=== PATIENT | female | born 1955 | race Caucasian/White ===

== ENCOUNTER 2018-12-23 16:43 | Emergency (ER) | payer OTHER ==
[~2018-12-23] VITALS: Ht 172.7 cm; Wt 90.7 kg
--- NOTE | 2018-12-23 16:43 | NUR ---
Patient BIBA BLS, transferred to bed 9. RN evaluating patient at bedside.
[2018-12-23 16:44] VITALS: BP 170/64
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
--- NOTE | 2018-12-23 17:12 | NUR ---
PT BIB [facility] TO ER BED 9
[2018-12-23] MEDS ORDERED: PROPOFOL 200 MG/20 ML VIAL IV ONE (17:15)
--- NOTE | 2018-12-23 17:42 | NUR ---
Dr. Rdz, RN and RT at bedside for reduction of right ankle fracture with moderate sedation.
--- NOTE | 2018-12-23 17:43 | NUR ---
PT ON ETCO2 AT 3LNC PT GIVEN SEDATION DR. PARIS AT BEDSIDE HR 94 RR 28 O2 SAT 98% ETCO2 37 ENDED AT 1749 O2 SAT 99% HR 89 RR 16 ETCO2 WAS 36 PT WAS TALKING AND SEMI AWAKE WITH FAMILY AT BEDSIDE
--- NOTE | 2018-12-23 17:44 | NUR ---
50MG/5ML PROPOFOL IVP TO BEGIN REDUCTION
--- NOTE | 2018-12-23 17:48 | NUR ---
REDUCTION PROCEDURE COMPLETE, PT VSS AT THIS TIME.
--- NOTE | 2018-12-23 17:55 | NUR ---
polysomnograph tech at bedside for post-reduction XRAY.
--- NOTE | 2018-12-23 18:05 | NUR ---
PT RESTING IN BED, ALERT AND COMMUNICATING APPROPRIATELY. VSS
--- NOTE | 2018-12-23 18:15 | NUR ---
PT AWAKE AND RESTING IN BED. PT IS ALERT AND FRIEND IS AT BEDSIDE. VSS
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
--- NOTE | 2018-12-23 18:40 | NUR ---
PT AWAKE AND ALERT, INFORMED PT THAT SHE WILL BE TRANSFERED TO [facility] FOR CONTINUITY OF CARE
--- NOTE | 2018-12-23 19:54 | NUR ---
ASSISTED PT TO USE BEDPAN
--- NOTE | 2018-12-23 20:25 | NUR ---
Patient to be transferred to [facility]. Is being transferred due to NEED FOR HIGHER CARE. Receiving facility has accepting physician and available space. ER physician has signed transfer form. Patient or responsible constitution party has agreed to transfer and signed form. Patient belongings inventoried and will be sent with patient. Copy of nursing notes, lab reports, EKG, Physicians Orders and X-rays to be sent with patient. Report called to EVER at receiving facility. [facility] ambulance service has been called for transfer.
--- NOTE | 2018-12-23 20:27 | NUR ---
PT TAKEN BY [facility] TO [facility]
[2018-12-23 20:36] VITALS: BP 169/85
== END 2018-12-23 20:27 | disposition short-term general hospital (02) ==
LOC: MED 16:43
DX: S82.851A Displaced trimalleolar fracture of right lower leg, initial encounter for closed fracture (principal); W01.0XXA Fall on same level from slipping, tripping and stumbling without subsequent striking against object, initial encounter; Y93.89 Activity, other specified; Y92.89 Other specified places as the place of occurrence of the external cause; Y99.8 Other external cause status
CPT/HCPCS: 27818; 73590; 73610; 99152; 99285; J2704; Q0092